=== PATIENT | female | born 2000 | race Caucasian/White ===

== ENCOUNTER 2020-03-26 12:28 | Emergency (ER) | payer OTHER, SELFPAY ==
--- NOTE | ~2020-03-26 | CT_ITS ---
EXAMINATION: CT abdomen pelvis w con DATE: 03/26/2020 16:04 INDICATION: Right lower quadrant abdominal pain. TECHNIQUE: Computed tomography (CT) of the abdomen and pelvis was performed with 100 mL Omnipaque 350 intravenous contrast. Automated exposure control and iterative reconstruction technique were employe d. The dose-length product was 1028.76 mGy-cm. COMPARISON: None. FINDINGS: The visualized portions of the lung bases are clear without pneumonia or pleural effusion. The heart size is normal. No pericardial effusion. The liver, gallbladder, spleen, pancreas, and adre nal glands are normal. There is mild bilateral hydronephrosis. There is 11.4 cm cyst abutting the ova jimmy that likely arises from the left ovary. There are no dilated loops of bowel. The appendix is nor mal. There are no pathologically enlarged lymph nodes. There is no free intraperitoneal fluid. The katy lani are unremarkable. IMPRESSION: 1. 11.4 cm cyst abutting the ovaries that likely arises from the left ovary, likely benign. Torsion c annot be excluded. Consider surgical evaluation. 2. Mild bilateral hydronephrosis. Reviewed, dictated and finalized at location A. IMPRESSION: 1. 11.4 cm cyst abutting the ovaries that likely arises from the left ovary, li cam benign. Torsion cannot be excluded. Consider surgical evaluation. 2. Mild bilateral hydronephrosis.
--- NOTE | ~2020-03-26 | US_ITS ---
EXAMINATION: US pelvic complete DATE: 03/26/2020 16:47 INDICATION: Ovarian cyst. TECHNIQUE: Multiple transabdominal sonographic images of the pelvis were obtained. COMPARISON: CT abdomen and pelvis 03/26/2020 FINDINGS: The uterus measures 6.6 x 3.6 x 4.1 cm. There is no free fluid in the pelvis. The endometrial complex measures 6 mm in thickness. The right ovary measures 2.5 x 1.2 x 1.5 cm. The left ovary measures 3.3 x 1.3 x 2.4 cm. There is normal vascular flow in the ovaries. There is an 11.2 cm cyst at the midlin e. IMPRESSION: 1. 11.2 cm cyst at the midline, likely arising from the left ovary given the CT findings, likely len gn. Consider surgical evaluation. Reviewed, dictated and finalized at location A. IMPRESSION: 1. 11.2 cm cyst at the midline, likely arising from the left ovary given the CT findings, likely benign. Consider surgical evaluation.
[2020-03-26 12:30] VITALS: BP 134/83; PULSE 93; RESP 20; TEMP 36.6; O2SAT 100
[2020-03-26 12:55] LABS: Basophils Percent Auto 0.5 % (0.2-1.2); Eosinophils Absolute Auto 0.1 K/mm3 (0-0.3); Eosinophils Percent Auto 0.7 % (0-4.4); Hematocrit 36.4 % (37.0-47.0); Hemoglobin 11.3 g/dL (12.0-15.0); Immature Granulocyte Absolute 0.02 K/mm3 (0.00-0.031); Immature Granulocyte Percent A 0.2 % (0-0.5); Lymphocytes Absolute Auto 2.17 K/mm3 (0.9-3.2); Lymphocytes Percent Auto 25.9 % (18.3-44.2); Mean Corpuscular Hemoglobin 24.7 pg (26-34); Mean Corpuscular Volume 79.5 fl (80-100); Mean Platelet Volume 9.9 fl (7.4-10.4); Monocytes Absolute Auto 0.7 K/mm3 (0.1-0.6); Monocytes Percent Auto 7.7 % (2.6-8.5); Neutrophils Absolute Auto 5.5 K/mm3 (1.3-6.7); Platelet Count Result 323 k/mm3 (150-375); Red Blood Count 4.58 M/mm3 (4.2-5.4); Red Cell Distribution Width 15.8 % (11.5-14.5); White Blood Count 8.4 K/mm3 (4.5-10.0)
[2020-03-26 13:09] LABS: Alanine Aminotransferase 12 U/L (4-35); Albumin Level 4.7 g/dL (3.7-5.6); Alkaline Phosphatase 126 U/L (45-116); Anion Gap 10 mmol/L (8-16); Aspartate Amino Transferase 23 U/L (14-36); Bilirubin,Total 0.5 mg/dL (0.2-1.3); Blood Urea Nitrogen 12 mg/dL (8-21); Calcium 9.2 mg/dL (8.9-10.7); Carbon Dioxide 24 mmol/L (22-30); Chloride 104 mmol/L (98-107); Estimated CRCL calculation 120 ml/min; Estimated Glomerular Filt Rate > 60; Glucose 92 mg/dL (65-105); Lipase 40 U/L (23-300); Potassium 3.8 mmol/L (3.4-5.0); Sodium 138 mmol/L (134-143)
[2020-03-26 14:23] LABS: Add Urine Microscopic? YES; Appearance Urine Cloudy (Clear); Bilirubin Urine Negative (Negative); Blood Urine 3+ (Negative); Color Urine Yellow (Yellow); Glucose Urine UA Negative (Negative); Ketones Urine 1+ mg/dL (Negative); Leukocyte Esterase Ur Trace LEU/UL (Negative); Mucus Urine Few /lpf; Nitrate Urine Negative (Negative); Protein Urine 1+ mg/dL (Negative); RBC Urine >75 /hpf (0-2); Squamous Epithelial Cell Urine Few /hpf (Few); Urobilinogen Urine Negative mg/dL (<2.0)
[2020-03-26 14:40] VITALS: BP 131/69; PULSE 62; RESP 18; O2SAT 100
--- NOTE | 2020-03-26 15:34 | ED.ABDPAIN ---
HPI - Abdominal Pain General Chief Complaint: Abdominal Pain Stated Complaint: low abd pain Time Seen by Provider: 03/26/20 15:23 Source: patient Mode of arrival: ambulatory Limitations: no limitations History of Present Illness HPI narrative: This patient is a 19 year old female with history of PCOS who presents for evaluation of right lower abdominal pain. She reports she developed pain to right lower abdomen yesterday. . Her pain was initially severe and she had an episode of vomiting. She denies nausea or currently. She reports she took 2 midol for her pain before arrival and her pain has improved to 5/10. She denies fever or chills. She is currently on her menstrual cycle. Related Data Allergies Allergy/AdvReac Type Severity Reaction Status Date / Time No Known Allergies Allergy Verified 03/26/20 17:27 Review of Systems Review of Systems: All systems reviewed & are unremarkable except as noted in HPI and below Constitutional: Constitutional: Denies chills and Denies fever(s) Gastrointestinal: Gastrointestinal: Reports abdominal pain, Denies nausea and Reports vomiting Genitourinary: Genitourinary: Denies hematuria, Denies pelvic pain and Denies vaginal discharge PMFSH Past Medical History Medical History (Updated 03/26/20 @ 17:27 by Carolann Lee MD) Polycystic ovarian syndrome Surgical History Surgical History (Updated 03/26/20 @ 16:08 by Carolann Lee MD) No pertinent past surgical history Social History Social History (Updated 03/26/20 @ 16:08 by Carolann Lee MD) Smoking status: Never smoker Exam Narrative: Exam Narrative: GENERAL: Well-appearing, well-nourished, and in no acute distress. HEAD: Normocephalic, atraumatic EYES: PERRLA and EOMI, conjunctiva clear without discharge THROAT:Mucous membranes moist, Oropharynx normal without erythema, exudate, peritonsillar swelling or fluctuance NECK: Supple, without lymphadenopathy or mass RESPIRATORY: No respiratory distress, Airway patent, Respirations non-labored, Clear to auscultation without rales, rhonchi or wheeze HEART: Regular rate and rhythm. No murmur heard. Normal peripheral pulses. ABDOMEN: Soft, TTP right lower quadrant, nondistended, normal active bowel sounds. No masses. No rebound or guarding, No organomegaly. EXTREMITIES: No edema, normal strength with full range of motion. SKIN: Warm, dry, normal color without rash NEURO: Alert and oriented x3. CN 2-12 grossly intact. No focal deficits. PSYCH: Normal mood and affect. Course Consultations Consultation #1: I discussed case with Dr. Tamayo. Patient is comfortable. She agrees patient to can follow up as outpatient. Date: 03/26/20 Time: 17:25 Vital Signs Vital signs: Vital Signs Temperature 97.8 F 03/26/20 12:30 Pulse Rate 93 03/26/20 12:30 Respiratory Rate 20 03/26/20 12:30 Blood Pressure 134/83 03/26/20 12:30 Pulse Oximetry 100 03/26/20 12:30 Temperature 97.8 F 03/26/20 12:30 Pulse Rate 65 03/26/20 17:41 Respiratory Rate 15 03/26/20 17:41 Blood Pressure 111/63 03/26/20 17:41 Pulse Oximetry 100 03/26/20 17:41 MDM - Abdominal Pain Lab Data Attestation: I reviewed the patient's lab results. Result diagrams: 03/26/20 12:38 03/26/20 12:38 Labs: Lab Results 03/26/20 03/26/20 03/26/20 Range/Units 12:38 12:38 14:11 WBC 8.4 (4.5-10.0) K/mm3 RBC 4.58 (4.2-5.4) M/mm3 Hgb 11.3 L (12.0-15.0) g/dL Hct 36.4 L (37.0-47.0) % MCV 79.5 L (80-100) fl MCH 24.7 L (26-34) pg MCHC 31.0 L (32-36) g/dl RDW 15.8 H (11.5-14.5) % Plt Count 323 (150-375) k/mm3 MPV 9.9 (7.4-10.4) fl Immature Gran % (Auto) 0.2 (0-0.5) % Neut % (Auto) 65.0 (45.5-73.1) % Lymph % (Auto) 25.9 (18.3-44.2) % [place] % (Auto) 7.7 (2.6-8.5) % Eos % (Auto) 0.7 (0-4.4) % Baso % (Auto) 0.5 (0.2-1.2) % Lymph # (Auto) 2.17 (0.9-3.2) K/mm3 M
[2020-03-26 17:41] VITALS: BP 111/63; PULSE 65; RESP 15; O2SAT 100
== END 2020-03-26 17:43 | disposition home or self-care (01) ==
PROVIDERS: Emergency Provider General Practice
DX: N83.202 Unspecified ovarian cyst, left side (principal)
CPT/HCPCS: 36415; 74177; 76856; 80053; 81001; 81025; 83690; 85025; 87086; 87088; 99284; Q9967

== ENCOUNTER 2020-04-13 09:38 | Outpatient (CLI) | payer OTHER, SELFPAY ==
[2020-04-13 10:49] LABS: Glucose 91 mg/dL (65-105)
[2020-04-13 11:33] LABS: Free T4 Free Thyroxine 0.81 ng/mL (0.78-2.19)
[2020-04-16 07:23] LABS: Insulin Level Total 11.2 uIU/mL (<=19.6)
[2020-04-17 05:48] LABS: FSH 6.4 mIU/mL (***); LH 13.3 mIU/mL (***); Prolactin 7.5 ng/mL (***); Triiodothyronine T3 Free 3.1 pg/mL (3.0-4.7)
[2020-04-17 12:06] LABS: Testosterone Total 50 ng/dL (2-45)
[2020-04-18 16:17] LABS: DHEA-Sulfate 382 mcg/dL (51-321)
[2020-04-19 04:51] LABS: Testosterone Free 8.4 pg/mL (0.2-5.0)
== END 2020-04-13 09:39 | disposition home or self-care (01) ==
PROVIDERS: Visit Provider Student in an Organized Health Care Education/Training Program
DX: N92.6 Irregular menstruation, unspecified (principal)
CPT/HCPCS: 36415; 82627; 82947; 83001; 83002; 83498; 83525; 84146; 84402; 84403; 84439; 84443; 84481

== ENCOUNTER 2020-05-02 03:29 | Outpatient (CLI) | payer OTHER, SELFPAY ==
[2020-05-02 19:05] LABS: SARS-CoV-2 RNA PCR Negative
== END 2020-05-02 03:30 | disposition home or self-care (01) ==
LOC: ANHCOVIDDT 03:29
PROVIDERS: Visit Provider Student in an Organized Health Care Education/Training Program
DX: Z01.812 Encounter for preprocedural laboratory examination (principal); Z20.828 Contact with and (suspected) exposure to other viral communicable diseases
CPT/HCPCS: 87635; C9803; U0003

== ENCOUNTER 2020-05-04 01:54 | Day surgery (SDC) | payer OTHER, SELFPAY ==
[2020-04-24 09:32] VITALS: BMI 32.5
--- NOTE | 2020-05-03 13:54 | WPDANESEPPF ---
Anes - Initial Pre Proc Eval Procedure: Operation Date: 05/04/20 07:30 Proposed Procedures p Laparoscopic Ovarian Cystectomy, Possible Oophorectomy - Lili Peterson MD Date/Time: 05/03/20 13:54 Surgeon: Lili Peterson MD Pre Op Diagnosis: ovarian cyst Patient Data Age: 20 Gender: F Height: 1.63 m Weight: 86.18 kg Allergies Allergy/AdvReac Type Severity Reaction Status Date / Time Penicillins Allergy Mild Unknown- Verified 05/04/20 06:35 occured as child Home Medications Medication Instructions Recorded Confirmed Type drospirenone 3 mg-ethinyl 1 tablet PO DAILY #84 tablet 04/06/20 05/04/20 Rx estradiol 0.02 mg tablet multivitamin 1 tablet PO DAILY 04/24/20 05/04/20 History Patient hx anesthesia problems: none Family hx anesthesia problems: none PMFSH Past Medical History Medical History Anxiety Back pain Stallings's palsy Chronic GERD Depression Obesity Polycystic ovarian syndrome Surgical History Surgical History No pertinent past surgical history Family History Family History Grandparent Diabetes mellitus Grandparent Acute myocardial infarction Grandparent Hypertension Social History Social History Smoking status: Never smoker Spiritual care concerns: No Anes - Eval Final PreProcedure Day of Procedure 05/03/20 13:54 Patient weight: obese Heart: regular rate and rhythm Lungs: clear to auscultation and normal air movement Airway: Mallampati scale class II Neurological: alert and oriented Last oral intake: >/= 8 hours ASA classification: III Emergent: no Anesthetic plan: proceed Anesthesia type and monitoring: general ETT Informed Consent: The patient's anesthetic plan and its attendant risks and benefits were discussed with the patient/family/POA. Questions were solicited and answers provided to the satisfaction of the patient/family/POA.
--- NOTE | 2020-05-03 16:34 | PM.IMHP ---
H&P: HPI History of Present Illness Date/Time: 05/03/20 16:34 Chief complaint: ovarian cyst Narrative: Cordelia Mccain is a 20 year old nulligravid female with a long history of a persistent pelvic cyst thought to be an ovarian cyst. During a work up by outside provider for PCOS in 05/2019, a large 9cm simple appearing ovarian cyst was noted. Patient has been managed expectantly since then. Approximately one month ago, patient experienced an episode of severe pain and presented to the ED. During evaluation, the persistent cyst was still identified and is now measuring 11cm. Patient was seen in burr grinder office and after a lengthy discussion, decision was made to proceed with surgical management as next step in management of this persistent cyst. Patient reports intermittent pelvic pain, however, constant pelvic pressure. States that pressure is worse when laying in prone position. She also reports significant dysmenorrhea as well as urinary urgency for the past few months. In general, however, patient reports feeling well today. Review of Systems Review of Systems: All systems reviewed & are unremarkable except as noted in HPI and below Constitutional: Constitutional: Reports as per HPI, Reports no additional constitutional complaints, Denies chills, Denies fever(s), Denies headache(s) and Denies night sweats Eyes: Eyes: Reports as per HPI and Reports no additional eye complaints ENT: Reports system reviewed and no additional complaints, except as documented, Reports as per HPI, Reports Normal hearing present and Denies headache(s) Cardiovascular: Cardiovascular: Reports as per HPI, Reports no additional cardiovascular complaints, Denies chest pain and Denies dyspnea Respiratory: Respiratory: Reports as per HPI, Reports no additional respiratory complaints, Denies cough and Denies dyspnea Gastrointestinal: Gastrointestinal: Reports as per HPI, Reports no additional gastrointestinal complaints, Denies abdominal pain, Denies change in bowel habits, Denies change in stool character, Denies nausea and Denies vomiting Genitourinary: Genitourinary: Reports no additional female genitourinary complaints, Reports as per HPI, Denies abnormal vaginal bleeding, Denies genital lesions, Denies hot flashes, Denies dyspareunia, Denies pelvic pain, Denies sexual dysfunction, Denies urinary incontinence, Denies vaginal discharge, Denies vaginal dryness and Denies vaginal odor Musculoskeletal: Musculoskeletal: Reports no additional musculoskeletal complaints and Reports as per HPI Integumentary/Breasts: Skin/Breast: Reports system reviewed and no additional complaints, except as docu, Reports as per HPI, Denies breast pain and Denies nipple discharge Neurologic: Reports system reviewed and no additional complaints, except as documented, Reports as per HPI, Reports Normal hearing present and Denies headache(s) Psychiatric: Psychiatric: Reports no additional psychiatric complaints, Reports as per HPI, Denies anxiety and Denies depression Endocrine: Endocrine: Reports no additional endocrine complaints and Reports as per HPI Hematologic/Lymphatic: Hematologic/Lymphatic: Reports no additional hematologic/lymphatic complaints and Reports as per HPI Allergic/Immunologic: Allergic/Immunologic: Reports no additional allergic/immunologic complaints and Reports as per HPI PMFSH Past Medical History Medical History Anxiety Back pain Stallings's palsy Chronic GERD Depression Obesity Polycystic ovarian syndrome Surgical History Surgical History No pertinent past surgical history Family History Family History Grandparent Diabetes mellitus Grandparent Acute myocardial infarction Grandparent Hypertension Social History Social History Smoking status: Never smoker
[2020-05-04] VITALS (8 sets, daily range): BP systolic 99–121; BP diastolic 44–66; PULSE 70–100; RESP 15–24; TEMP 36.2–37.1; O2SAT 95–100
[2020-05-04] MEDS: ACETAMINOPHEN 500 MG TABLET 1000 MG PO (06:57)
[2020-05-04] MEDS: KETOROLAC 15 MG/ML VIAL (*BKC) IV PUSH (06:57)
[2020-05-04] MEDS: LACTATED RINGERS 1,000 ML 30 ML IV CONT ×3 (07:16→11:23)
--- NOTE | 2020-05-04 07:29 | WPDHPUPDATE1 ---
History and Physical Update Update Date/Time: 05/04/20 07:29 History and Physical has been reviewed, including an updated exam of the patient. There are NO changes in the patient's condition. Risks, benefits, and alternatives have been discussed and questions answered. Patient agrees to proceed with procedure.
--- NOTE | 2020-05-04 09:51 | PM.PROC ---
Procedure Note - Detailed Date of procedure: 05/04/20 Pre-op diagnosis: ovarian cyst Post-op diagnosis: same Procedure performed: Laparoscopic left ovarian cystectomy Description of procedure: The patient was taken to the operating room where she self-transferred to the operating room table. Patient was placed in dorsal supine position. General anesthesia was administered and found to be adequate. The patient was repositioned in the dorsal lithotomy position with the use of Santino stirrups. Patient was prepped and draped in usual sterile fashion. A sponge stick was placed in the vagina for manipulation of the uterus during the laparoscopic portion of the case. Vocational Rehabilitation Teacher's gloves were changed. Attention was then turned to patient's abdomen. Approximately 5 cc of Exparel was injected in the infraumbilical region. An infraumbilical skin incision was made with a scalpel. With the abdomen tented up, a Veress needle was inserted into the abdominal cavity. Intra-abdominal confirmation was made with saline. Carbon dioxide tubing was attached to the Veress needle and insufflation was begun. When adequate pneumoperitoneum was achieved, the Veress needle was removed and a 5 mm Optiview trocar was introduced under direct visualization into the abdominal cavity. The laparoscope was introduced into abdominal cavity and a general survey was performed. A large cyst occupying the entire pelvic cavity was visualized. No other pelvic structures were visualized beneath cyst at this time. Decision was made to place two accessory trocars to facilitate the remainder of the procedure. A small amount of Exparel was injected in the right lower quadrant and a 5 mm skin incision was made with a scalpel. A 5 mm trocar was introduced under direct visualization. Similarly, a small amount of Exparel was injected in the left lower quadrant and a 10 mm skin incisions made with a scalpel. A 10mm trocar was introduced under direct visualization. The patient was placed in Trendelenburg position for enhanced visualization. With the use of atraumatic graspers and a blunt probe, the cyst was elevated and noted to be arising from the left ovary. The patient?s uterus, right ovary and right fallopian tube appeared normal. The patient?s left ovary was also visualized adjacent, however, adherent to the cyst and the left fallopian tube was also noted to be adherent to the cyst along the lateral aspect near pelvic sidewall. Both the left ovary and left fallopian tube appeared grossly normal. With the use of Endo Isamar, the outer layer overlying the cyst was incised with endo isamar. This incision was extended. With the use of traction and counter traction maneuvers, the cyst was carefully shelled. Few thin adhesions overlying the cyst were also transected with endo isamar. When approximately 75-80% of the cyst had been detached, an inadvertent puncture was made with blunt graspers. Clear fluid was noted draining from the cyst. A suction director product was used to evacuate the fluid. With the cyst decompressed, the attachments of the cyst to the left ovary and fallopian tube were more clearly seen. A LigaSure was introduced into the cavity and the cyst wall was carefully detached from the ovary and fallopian tube and completely excised. An endo-catch bag was introduced into abdominal cavity through the 10mm trocar and the cyst wall was removed and handed off the field to be sent to pathology. The excision site was inspected and no active bleeding was noted. The left ovary and fallopian tube were inspected again and appeared normal. The area was irrigated with the suction director product and all fluid was evacuated. Hemaderm was applied to excision site and the procedure was deemed complete. The liver and gallbladder were visualized and appeared to be grossly normal. Several photographs were taken throughout the entire procedure. Under direct visualization, the 10 mm trocar was removed. A Raffi-Quintin device was then inserted and th
[2020-05-04] MEDS: fentaNYL CITRATE INJ (*CRX) 100 MCG/2 ML VIAL 25 MCG IV PUSH ×4 (09:58→10:16)
[2020-05-04] MEDS: ONDANSETRON INJ 4 MG/2 ML VIAL IV PUSH (11:21)
--- NOTE | 2020-05-04 12:08 | SUR.PHASEII ---
1115: Patient stated, My pain isn't that bad anymore and I'd rather not take the pain medication at this time.
== END 2020-05-04 11:58 | disposition home or self-care (01) ==
PROVIDERS: Visit Provider Student in an Organized Health Care Education/Training Program
PROC: (CPT 49320; principal; 2020-05-04 07:30)
DX: D27.1 Benign neoplasm of left ovary (principal); E28.2 Polycystic ovarian syndrome; K21.9 Gastro-esophageal reflux disease without esophagitis; F41.8 Other specified anxiety disorders
CPT/HCPCS: 58662; 88305; A9270; C9290; J0330; J1100; J1885; J2250; J2405; J2704; J2710; J3010; J7030; J7120

== ENCOUNTER 2020-05-25 11:12 | Emergency (ER) | payer OTHER, SELFPAY ==
[2020-05-25 11:21] VITALS: BP 117/67; PULSE 83; RESP 14; TEMP 36.8; O2SAT 99
--- NOTE | 2020-05-25 12:49 | ED.GENADULT ---
HPI - General Adult General Chief complaint: Anxiety <ANSON Ugarte Last Filed: 05/25/20 16:02> Stated complaint: anxiety <ANSON Ugarte Last Filed: 05/25/20 16:02> Time Seen by Provider: 05/25/20 11:30 <ANSON Ugarte Last Filed: 05/25/20 16:02> Source: patient <ANSON Ugarte Last Filed: 05/25/20 16:02> Mode of arrival: ambulatory <ANSON Ugarte Last Filed: 05/25/20 16:02> Limitations: no limitations <ANSON Ugarte Filed: 05/25/20 16:02> History of Present Illness HPI narrative: Patient came in today because she has been feeling anxious for the last week or so. She does have a history of anxiety that is never had to be treated with medication or therapy. In of April she had laparoscopic surgery for ovarian cyst removal. She was recommended to start on control which she has not yet started and was prescribed buspirone for anxiety which she has not started because she felt like she did not have an adequate appetite. She is unclear why she is so anxious. She has history of PCOS. She had a thorough work-up prior to her surgery and showed a normal thyroid function. <ANSON Ugarte Last Filed: 05/25/20 16:02> Onset (ago): day(s) <ANSON Ugarte Last Filed: 05/25/20 16:02> Related Data Home medications: Home Medications Medication Instructions Recorded Confirmed multivitamin 1 tablet PO DAILY 04/24/20 05/04/20 <ANSON Ugarte Last Filed: 05/25/20 16:02> Allergies/adverse reactions: Allergies Allergy/AdvReac Type Severity Reaction Status Date / Time Penicillins Allergy Mild Unknown- Verified 05/25/20 11:25 occured as child <ANSON Ugarte Last Filed: 05/25/20 16:02> Review of Systems Review of Systems: All systems reviewed & are unremarkable except as noted in HPI and below <Arely Butler PA-C - Last Filed: 05/25/20 16:02> REPLACED BY [facility] Past Medical History Medical History: Medical History Anxiety Back pain Stallings's palsy Chronic GERD Depression Obesity Polycystic ovarian syndrome <Arely Butler PA-C - Last Filed: 05/25/20 16:02> Surgical History Surgical History: Surgical History No pertinent past surgical history <Arely Butler PA-C - Last Filed: 05/25/20 16:02> Family History Family History: Family History Grandparent Diabetes mellitus Grandparent Acute myocardial infarction Grandparent Hypertension <Arely Butler PA-C - Last Filed: 05/25/20 16:02> Social History Social History: Social History (Updated 05/25/20 @ 13:10 by Arely Butler PA-C) Smoking status: Never smoker Alcohol intake: never Substance use: never Living arrangements: with friend(s) Occupation/Education: occupation 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 Gender identity (if verbalized by the patient): Female Spiritual care concerns: No <Arely Butler PA-C - Last Filed: 05/25/20 16:02> Exam Const: General: no acute distress and alert <Arely Butler PA-C - Last Filed: 05/25/20 16:02> Orientation/consciousness: patient oriented x3 <Arely Butler PA-C - Last Filed: 05/25/20 16:02> Other: somewhat tearful <Arely Butler PA-C - Last Filed: 05/25/20 16:02> HENMT: Head: normal to inspection <Arely Butler PA-C - Last Filed: 05/25/20 16:02> Eyes: Conjunctivae: conjunctivae normal <Arely Butler PA-C - Last Filed: 05/25/20 16:02> Pupils: Equal, round and reactive pupils present <ANSON Ugarte Last Filed: 05/25/20 16:02> Resp: Effort & Inspection: normal respiratory effort <Arely Butler PA-C - Last Filed: 05/25/20 16:02> Auscultation: clear to auscultation bilaterally <Arely Singh Ame
[2020-05-25 14:25] VITALS: BP 95/72; PULSE 65; RESP 16; O2SAT 97
--- NOTE | 2020-05-25 14:25 | PC.NURSE ---
c/o dizziness and lethargy after taking buspirone per PA's request. vitals stable. PA notified of pt c/o
[2020-05-25 14:54] VITALS: BP 99/72; PULSE 75; RESP 18; O2SAT 100
[2020-05-25 16:23] VITALS: BP 104/69; PULSE 76; RESP 16; O2SAT 97
== END 2020-05-25 16:20 | disposition home or self-care (01) ==
PROVIDERS: Emergency Provider Emergency Medicine
DX: F41.9 Anxiety disorder, unspecified (principal); E28.2 Polycystic ovarian syndrome; K21.9 Gastro-esophageal reflux disease without esophagitis; E66.9 Obesity, unspecified; Z68.31 Body mass index [BMI] 31.0-31.9, adult
CPT/HCPCS: 99281

== ENCOUNTER 2021-05-02 19:20 | Emergency (ER) | payer OTHER, SELFPAY ==
--- NOTE | ~2021-05-02 | US_ITS ---
EXAMINATION: US OB <=14 wk fetus w TV DATE: 05/02/2021 23:44 INDICATION: Vaginal bleeding during first trimester TECHNIQUE: Real-time pelvic transabdominal and transvaginal ultrasound was performed. COMPARISON: None. FINDINGS: The uterus measures 10.0 x 4.5 x 5.4 cm. An intrauterine fluid collection measures 5 mm, w hich correlates with an estimated gestational age of 5 weeks and 0 day(s) (+/-) 3 day(s). No po le is identified. The right ovary measures 3.7 x 2.6 x 2.0 cm. The left ovary measures 3.0 x 1.9 x 1.8 cm. There is nor mal vascular flow in the ovaries. There is no free fluid in the pelvis. IMPRESSION: 1. Intrauterine fluid collection with an estimated gestational age of 5 weeks and 0 day(s) (+/-) 3 da y(s) and an estimated delivery date of 01/02/2022 based on mean sac diameter. Nonvisualization of the pole may be due to early . Reviewed, dictated and finalized at location A. IMPRESSION: 1. Intrauterine fluid collection with an estimated gestational age of 5 weeks a nd 0 day(s) (+/-) 3 day(s) and an estimated delivery date of 01/02/2022 based on mean sac diameter. Nonvisualization of the pole may be due to early preg sammi.
[2021-05-02 19:42] VITALS: BP 110/59; PULSE 70; RESP 16; TEMP 37; O2SAT 97
[2021-05-02 19:59] LABS: Basophils Absolute Auto 0.1 K/mm3 (0.0-0.1); Basophils Percent Auto 0.7 % (0.2-1.2); Eosinophils Absolute Auto 0.1 K/mm3 (0-0.3); Hematocrit 34.1 % (37.0-47.0); Hemoglobin 10.8 g/dL (12.0-15.0); Immature Granulocyte Absolute 0.02 K/mm3 (0.00-0.031); Immature Granulocyte Percent A 0.2 % (0-0.5); Lymphocytes Absolute Auto 2.93 K/mm3 (0.9-3.2); Lymphocytes Percent Auto 36.3 % (18.3-44.2); Mean Corpuscular HGB Conc 31.7 g/dl (32-36); Mean Corpuscular Hemoglobin 26.9 pg (26-34); Mean Platelet Volume 9.8 fl (7.4-10.4); Monocytes Absolute Auto 0.7 K/mm3 (0.1-0.6); Monocytes Percent Auto 8.8 % (2.6-8.5); Neutrophils Absolute Auto 4.3 K/mm3 (1.3-6.7); Platelet Count Result 257 k/mm3 (150-375); Red Blood Count 4.01 M/mm3 (4.2-5.4); Red Cell Distribution Width 14.7 % (11.5-14.5); White Blood Count 8.1 K/mm3 (4.5-10.0)
[2021-05-02 22:33] VITALS: BP 112/64; PULSE 95; RESP 14; O2SAT 100
--- NOTE | 2021-05-02 23:01 | PC.NURSE ---
Report given to Summer Rn at this time.
[2021-05-02 23:03] VITALS: BP 122/65; PULSE 80
[2021-05-02 23:04] VITALS: BP 119/64; PULSE 73
[2021-05-02 23:05] VITALS: BP 125/65; PULSE 85
--- NOTE | 2021-05-02 23:13 | ED.GENADULT ---
HPI - General Adult General Chief complaint: Vaginal Bleeding Stated complaint: and bleeding Time Seen by Provider: 05/02/21 22:38 History of Present Illness HPI narrative: Patient 21-year-old female presents the emergency department with chief complaint of vaginal bleeding. Patient reports she is about 6 weeks and this is her first the patient states she has been cramping he had with a pinkish discharge the last several days tonight she started having some bright red blood and had some small clots. The patient states that she had cramping with this reports that its not improved by anything nor is it worsened by anything patient reports she has not gone through a pad yet the patient states that this is her first she is unsure of her blood type. Related Data Home Medications Medication Instructions Recorded Confirmed multivitamin 1 tablet PO DAILY 04/24/20 05/02/21 Allergies Allergy/AdvReac Type Severity Reaction Status Date / Time Penicillins Allergy Mild Unknown- Verified 05/02/21 22:46 occured as child buspirone [From [facility]] AdvReac Anxiety Verified 05/02/21 22:46 Review of Systems Review of Systems: A 10 system review of systems was completed on the patient and is negative except for what is stated in the HPI. Nursing and ancillary documentation was reviewed. REPLACED BY [facility] Past Medical History Medical History Anxiety Back pain Stallings's palsy Chronic GERD Depression Obesity Polycystic ovarian syndrome Surgical History Surgical History No pertinent past surgical history Family History Family History Grandparent Diabetes mellitus Grandparent Acute myocardial infarction Grandparent Hypertension Social History Social History Smoking status: Never smoker Alcohol intake: never Substance use: never Additional occupation/education comments: senior caregiver Gender identity (if verbalized by the patient): Female Spiritual care concerns: No Exam Narrative: GENERAL: Well-appearing, well-nourished, and in no acute distress. HEAD: Normocephalic, atraumatic. EYES: PERRLA and EOMI. ENT: Nares clear, no rhinorrhea or epistaxis. Mucous membranes moist. NECK: Supple. CHEST: Clear to auscultation. No respiratory distress. HEART: Regular rate and rhythm. No murmur heard. Normal peripheral pulses. ABDOMEN: Soft, nontender, nondistended, normal active bowel sounds. EXTREMITIES: Normal range of motion. No edema. SKIN: Warm, dry, no rash. NEURO: No focal deficits. Alert and oriented x3. PSYCH: Normal mood and affect. Course Vital Signs Vital signs: Vital Signs Temperature 37.0 C 05/02/21 19:42 Pulse Rate 70 05/02/21 19:42 Respiratory Rate 16 05/02/21 19:42 Blood Pressure 110/59 L 05/02/21 19:42 Pulse Oximetry 97 05/02/21 19:42 Temperature 37.0 C 05/02/21 19:42 Pulse Rate 85 05/02/21 23:05 Respiratory Rate 14 05/02/21 22:33 Blood Pressure 125/65 05/02/21 23:05 Pulse Oximetry 100 05/02/21 22:33 Medical Decision Making Vital Signs Vital Signs: Vital Signs Temperature 37.0 C 05/02/21 19:42 Pulse Rate 70 05/02/21 19:42 Respiratory Rate 16 05/02/21 19:42 Blood Pressure 110/59 L 05/02/21 19:42 Pulse Oximetry 97 05/02/21 19:42 Temperature 37.0 C 05/02/21 19:42 Pulse Rate 85 05/02/21 23:05 Respiratory Rate 14 05/02/21 22:33 Blood Pressure 125/65 05/02/21 23:05 Pulse Oximetry 100 05/02/21 22:33 Lab Data Result diagrams: 05/02/21 19:51 Labs: Lab Results 05/02/21 05/02/21 05/02/21 Range/Units 19:51 19:51 19:51 WBC 8.1 (4.5-10.0) K/mm3 RBC 4.01 L (4.2-5.4) M/mm3 Hgb 10.8 L (12.0-15.0) g/dL Hct
[2021-05-03 00:10] VITALS: BP 107/68; PULSE 76; RESP 18; O2SAT 99
== END 2021-05-03 00:11 | disposition home or self-care (01) ==
PROVIDERS: Emergency Provider Emergency Medicine
DX: O20.0 Threatened abortion (principal); O99.611 Diseases of the digestive system complicating pregnancy, first trimester; K21.9 Gastro-esophageal reflux disease without esophagitis; O99.281 Endocrine, nutritional and metabolic diseases complicating pregnancy, first trimester; E28.2 Polycystic ovarian syndrome; O99.211 Obesity complicating pregnancy, first trimester; E66.9 Obesity, unspecified; Z3A.01 Less than 8 weeks gestation of pregnancy
CPT/HCPCS: 36415; 76801; 76817; 84702; 85025; 85461; 99284

== ENCOUNTER 2021-11-07 20:03 | Observation (INO) | payer OTHER, SELFPAY ==
[2021-11-07 20:20] VITALS: BP 121/65; PULSE 117
[2021-11-07 20:31] VITALS: BP 114/67; PULSE 117
[2021-11-07 20:36] LABS: Add Urine Microscopic? YES; Appearance Urine Cloudy (Clear); Bacteria Urine Trace /hpf; Bilirubin Urine Negative (Negative); Blood Urine Negative (Negative); Color Urine Yellow (Yellow); Glucose Urine UA Negative (Negative); Ketones Urine 1+ mg/dL (Negative); Leukocyte Esterase Ur 3+ LEU/UL (NEGATIVE); Mucus Urine Rare /lpf; Nitrate Urine Negative (Negative); Protein Urine Negative (Negative); RBC Urine 0-2 /hpf (0-2); Specific Grav Ur 1.012 (1.001-1.035); Squamous Epithelial Cell Urine Moderate /hpf (Few); Urobilinogen Urine Negative mg/dL (<2.0); WBC Urine 21-30 /hpf (0-3)
[2021-11-07 20:46] VITALS: BP 100/59; PULSE 109
--- NOTE | 2021-11-07 20:50 | OBADM ---
This patient, Cordelia Mccain, admitted to the OB room [facility] for observation. Patient/family oriented to hospital policies and general routines including ID bracelet, bed and alarms, visiting hours, pain management, procedures, bathroom and other care routines, personal items, smoking policy, room service/diet, and visiting hours. Patient/Family are encouraged to report perceived risks to care and to ask questions if they do not understand what they are told or what they should do.
[2021-11-07 20:56] VITALS: BMI 31.8
[2021-11-07 21:01] VITALS: BP 102/50; PULSE 109
--- NOTE | 2021-12-02 08:17 | PM.OBTRLD ---
OB - Triage/Final Diagnosis Visit Information Comments/Additional reasons for admission: I have assessed the risk for this patient, Cordelia Mccain, and determined that she would benefit from observation care. Evaluation Laboratory results: Laboratory Tests 11/07/21 20:24 Urine Color Yellow Urine Appearance Cloudy H Urine pH 7.0 Ur Specific [place] 1.012 Urine Protein Negative Urine Glucose (UA) Negative Urine Ketones 1+ H Ur Blood (Man) Negative Urine Nitrate Negative Urine Bilirubin Negative Urine Urobilinogen Negative Ur Leukocyte Esterase 3+ H Urine RBC 0-2 Urine WBC 21-30 H Ur Squamous Epith Cells Moderate H Urine Bacteria Trace Urine Mucus Rare Final Diagnosis (1) Abdominal pain: Code(s): R10.9 - Unspecified abdominal pain Status: Acute
== END 2021-11-07 21:22 | disposition home or self-care (01) ==
LOC: ANHOBPP 20:10
PROVIDERS: Admitting Provider Obstetrics & Gynecology; Visit Provider Obstetrics & Gynecology
DX: O26.893 Other specified pregnancy related conditions, third trimester (principal); R10.9 Unspecified abdominal pain; Z3A.32 32 weeks gestation of pregnancy
CPT/HCPCS: 81001; 87086; G0378; G0379